=== PATIENT | male | born 1960 | race Caucasian/White ===

== ENCOUNTER 2021-07-18 05:46 | Day surgery (SDC) | payer BC ==
[2021-07-11 15:01] LABS: BASOPHILS # (AUTO) 0.1 X10'3 (0-0.2); BASOPHILS % (AUTO) 0.7 % (0-1); EOSINOPHILS # (AUTO) 0.5 X10'3 (0-0.9); EOSINOPHILS % (AUTO) 4.3 % (0-6); LYMPHOCYTES # (AUTO) 2.3 X10'3 (1.1-4.8); LYMPHOCYTES % (AUTO) 18.7 % (21-51); MEAN CORPUSCULAR HEMOGLOBIN 29.9 PG (27.0-31.0); MEAN CORPUSCULAR HGB CONC 32.8 g/dL (33.0-36.5); MEAN PLATELET VOLUME 7.9 FL (7.4-10.4); MONOCYTES # (AUTO) 1.1 X10'3 (0-0.9); NEUTROPHILS # (AUTO) 8.4 X10'3 (1.8-7.7); NEUTROPHILS % (AUTO) 67.3 % (42-75); PRE OP HEMATOCRIT 44.1 % (42.0-52.0); PRE OP HEMOGLOBIN 14.5 g/dL (14.0-17.9); PRE OP PLATELET COUNT 273 X10'3 (140-440); RED BLOOD COUNT 4.85 X10'6 (4.70-6.10); RED CELL DISTRIBUTION WIDTH 14.8 % (11.5-14.5)
[2021-07-11 15:10] LABS: PRE OP PROTIME 10.2 SECONDS (9.0-12.0)
[2021-07-11 15:14] LABS: ALBUMIN 3.8 G/DL (3.4-5.0); ALBUMIN/GLOBULIN RATIO 0.8 (1.1-1.5); ALKALINE PHOSPHATASE 87 IU/L (46-116); BLOOD UREA NITROGEN 33 MG/DL (7-18); BUN/CREATININE RATIO 22.1 (5.4-32.0); CALCIUM 10.6 MG/DL (8.5-10.1); CHLORIDE 105 MMOL/L (99-107); CREATININE 1.49 MG/DL (0.60-1.10); PRE OP ALT 26 U/L (30-65); PRE OP ANION GAP 6 (8-16); PRE OP AST 10 U/L (10-37); PRE OP BILIRUB, TOTAL 0.2 MG/DL (0.0-1.0); PRE OP GLUCOSE 129 MG/DL (70-104); PRE OP POTASSIUM 4.4 MMOL/L (3.4-5.1); PRE OP SODIUM 139 MMOL/L (135-145); TOTAL CARBON DIOXIDE 28.1 MMOL/L (24-32); TOTAL PROTEIN 8.7 G/DL (6.4-8.2); eGFR 48 ML/MIN
[2021-07-18] VITALS (17 sets, daily range): BP systolic 109–147; BP diastolic 58–98
[~2021-07-18] VITALS: Ht 177.8 cm; Wt 131.0 kg
[~2021-07-18 05:46] MED LIST: DICL75TA28 PO; GABA600T13 PO; LITH450T2 PO; METH-798 PO; acetaminophen 325mg tablet PO ONE; ceFAZolin 1GM/D5W- ADD-VANTAGE 50 ML IV ONE; cefazolin/dext.iso 2gm/50ml IV ONE; celeCOXIB 100mg capsule PO ONE; famotidine 20mg tablet PO ONE; gabapentin 300mg capsule PO ONE; metoclopramide 5 mg/ml inj IV ONE; oxyCODONE SR 10mg (sust. release) tab -2 tabs (20mg) PO ONE; ringers solution, lacted 1,000 ML IV SCH; vancomycin 1,500 MG in NS 300ml IV soln IV ONE
[2021-07-18] MEDS ORDERED: CLINDAMYCIN/D5W 900mg/50ml 50 ML IV ONE (06:10)
[2021-07-18] MEDS ORDERED: celeCOXIB 100mg capsule PO ONE (06:30)
[2021-07-18] MEDS ORDERED: ketorolac trometh. 30mg/ml inj. ONE (06:44)
[2021-07-18] MEDS ORDERED: ROPIVAcaine 0.5% (5mg/ml) 30ml vial ONE (06:44)
[2021-07-18] MEDS ORDERED: epiNEPHrine 1 mg/ml inj ONE (06:44)
[2021-07-18] MEDS ORDERED: cloNIDine hcl/PF 100mcg/ml inj ONE (06:44)
[2021-07-18] MEDS ORDERED: diphenhydrAMINE 25mg capsule PO PRN ×2 (06:45)
[2021-07-18] MEDS ORDERED: HYDROcodone/acetaminophen 10/325mg tab PO PRN (06:45)
[2021-07-18] MEDS ORDERED: magnesium hydroxide 30ml (MOM) UD suspension PO PRN (06:45)
[2021-07-18] MEDS ORDERED: HYDROmorphone inj. 0.5 MG/0.5 ML DISP.SYRIN IV PRN (06:45)
[2021-07-18] MEDS ORDERED: vancomycin 1,000mg inj ONE (06:45)
[2021-07-18] MEDS ORDERED: HYDROmorphone 1 mg/ml syringe IV PRN (06:45)
[2021-07-18] MEDS ORDERED: bisacodyl 10mg suppository rectal RC PRN (06:45)
[2021-07-18] MEDS ORDERED: ondansetron/PF 4mg/2ml inj IV PRN ×2 (06:45→10:40)
[2021-07-18] MEDS ORDERED: acetaminophen 325mg tablet PO PRN (06:45)
[2021-07-18] MEDS: multivitamins, therapeutics tablet PO SCH (08:00)
[2021-07-18] MEDS: lithium carbonate 450mg CR tablet PO SCH (08:00)
[2021-07-18] MEDS: ascorbic acid 500mg tablet PO SCH ×2 (08:00→20:07)
[2021-07-18] MEDS: gabapentin 300mg capsule PO SCH ×2 (08:00→20:07)
[2021-07-18] MEDS ORDERED: MIDAZolam 1 MG/ML 5ML VIAL ONE (08:21)
[2021-07-18] MEDS ORDERED: fentaNYL/PF 50MCG/1 ML 2ML syringe ONE (08:21)
[2021-07-18] MEDS: aspirin 325mg tablet PO SCH (08:30)
[2021-07-18] MEDS ORDERED: ePHEDrine 50MG/ML INJ. ONE (08:46)
[2021-07-18] MEDS ORDERED: propofol inj 20 ML IV ONE (10:03)
--- NOTE | 2021-07-18 10:05 | NUR ---
Received from OR via , accompanied by Anesthesiologist and report given by Anesthesiolgist. PATIENT a&ox4, denies PAIN, V/S WNL, SCD ON, 18g TO GERSON PERALTA drsg to left hip cdi w/ immobilizer brace on. SENSATIONS T10. taken to surgical with all belongings and hooked up to monitors in room and report given to rn who has taken over patient care.
[2021-07-18] MEDS ORDERED: ringers solution, lacted 1,000 ML IV SCH (10:40)
[2021-07-18] MEDS ORDERED: morphine 2 MG/ML inj. syringe IV PRN (10:40)
[2021-07-18] MEDS ORDERED: morphine 4 MG/ML inj SYRINge IV PRN (10:40)
[2021-07-18] MEDS ORDERED: proCHLORperazine 10 MG/2 ml inj IV PRN (10:40)
[2021-07-18] MEDS ORDERED: meperidine/PF 25mg/ml syringe IV PRN ×3 (10:40)
[2021-07-18] MEDS ORDERED: tranexamic acid inj. 1,000 MG in 0.7% saline 100 ML PMX IV ONE (11:00)
--- NOTE | 2021-07-18 11:05 | NUR ---
PATIENT VERY SLEEPY BUT EASILY AWAKENS AND ANSWERS QUESTIONS APPROPRIETLY,, denies PAIN, V/S WNL, SCD ON, 18g TO LUE, GERSON drsg to left hip cdi w/ immobilizer brace on. HE IS ABLE TO WIGGLE TOES NOW. FINGER TIPS HAVE POOR CIRCULATION PER DR TRIP SO EAR PROB PULSE OX BEING USED AT BEDSIDE AND IS 96% ON 4 LNC. taken to surgical with all belongings and hooked up to monitors in room and report given to rn who has taken over patient care.
[2021-07-18] MEDS ORDERED: cyclobenzaprine 10mg tablet PO PRN (13:00)
[2021-07-18] MEDS ORDERED: tranexamic acid 1gm/0.7% sal. 100 ML IV ONE (14:00)
[2021-07-18] MEDS: potassium cl 20mEq in 1/2 NS 1,000 ML IV SCH ×3 (15:06→22:45)
[2021-07-18] MEDS: CLINDAmcin 900mg/NS 50ml IVPB 50 ML IV SCH (15:15)
--- NOTE | 2021-07-18 17:19 | NUR ---
1100 pt recieved from PACU. no acute changes from previous assessment per rn report
--- NOTE | 2021-07-18 19:49 | NUR ---
LEFT FOOT IS BLUISH RED WITH POSITIVE DORSALIS PEDAL PULSES ALTHOUGH HIS FEET ARE COOL.
[2021-07-18] MEDS ORDERED: vancomycin/NS 1 GM ADD-VANTAGE 250 ML IV ONE (20:00)
[2021-07-18] MEDS ORDERED: sennosides 8.6mg tablet PO SCH (21:00)
[2021-07-18] MEDS ORDERED: lithium carbonate 450mg CR tablet PO SCH (21:00)
[2021-07-18] MEDS ORDERED: vancomycin inj. 750 MG in normal saline 250ml IV soln 250 ML IV ONE (21:30)
[2021-07-18] MEDS ORDERED: LORazepam 1 MG tablet PO PRN (23:25)
[2021-07-19] VITALS: BP 153/90
[2021-07-19] MEDS: HYDROcodone/acetaminophen 10/325mg tab PO PRN ×2 (00:01→05:12)
[2021-07-19] MEDS: potassium cl 20mEq in 1/2 NS 1,000 ML IV SCH (03:00)
[2021-07-19 04:00] VITALS: BP 143/80
--- NOTE | 2021-07-19 06:12 | NUR ---
Problems reprioritized. Patient report given, questions answered & plan of care reviewed with JAZ. Addendum: 07/19/21 at 0613 by Jude Mccarty RN Amended: Links added.
[2021-07-19 06:31] LABS: BASOPHILS % (AUTO) 0.4 % (0-1); EOSINOPHILS # (AUTO) 0.3 X10'3 (0-0.9); EOSINOPHILS % (AUTO) 2.2 % (0-6); HEMOGLOBIN 12.3 g/dl (14.0-17.9); LYMPHOCYTES # (AUTO) 0.9 X10'3 (1.1-4.8); LYMPHOCYTES % (AUTO) 7.1 % (21-51); MEAN CORPUSCULAR HEMOGLOBIN 30.2 PG (27.0-31.0); MEAN CORPUSCULAR HGB CONC 32.3 g/dL (33.0-36.5); MEAN CORPUSCULAR VOLUME 93.6 FL (78-98); MEAN PLATELET VOLUME 8.1 FL (7.4-10.4); MONOCYTES # (AUTO) 1.4 X10'3 (0-0.9); MONOCYTES % (AUTO) 11.1 % (2-12); NEUTROPHILS # (AUTO) 9.9 X10'3 (1.8-7.7); NEUTROPHILS % (AUTO) 79.2 % (42-75); PLATELET COUNT 190 X10'3 (140-440); RED BLOOD COUNT 4.06 X10'6 (4.70-6.10); RED CELL DISTRIBUTION WIDTH 15.4 % (11.5-14.5); WHITE BLOOD COUNT 12.4 X10'3 (4.5-11.0)
[2021-07-19 06:53] LABS: ANION GAP 7 (8-16); CHLORIDE 107 MMOL/L (99-107); POTASSIUM 5.2 MMOL/L (3.5-5.1); SODIUM 141 MMOL/L (135-145); TOTAL CARBON DIOXIDE 27.1 MMOL/L (24-32)
[2021-07-19] MEDS: CLINDAmcin 900mg/NS 50ml IVPB 50 ML IV SCH ×2 (07:36)
[2021-07-19] MEDS: multivitamins, therapeutics tablet PO SCH (07:36)
[2021-07-19] MEDS: ascorbic acid 500mg tablet PO SCH (07:37)
[2021-07-19] MEDS: gabapentin 300mg capsule PO SCH (07:42)
[2021-07-19] MEDS: lithium carbonate 450mg CR tablet PO SCH (07:42)
[2021-07-19] MEDS: aspirin 325mg tablet PO SCH (07:42)
[2021-07-19 08:00] VITALS: BP 132/70
[2021-07-19 12:00] VITALS: BP 147/94
--- NOTE | 2021-07-19 13:12 | NUR ---
PT paged to review limitations with pts son Chance
[2021-07-19] MEDS ORDERED: celeCOXIB 100mg capsule PO SCH (20:00)
== END 2021-07-19 15:12 | disposition home or self-care (01) ==
LOC: PAS 05:46 → SUR 3N 06:45 → PAS 07-19 15:12
PROVIDERS: ATTEND Orthopaedic Surgery
DX: M16.12 Unilateral primary osteoarthritis, left hip (principal); F31.9 Bipolar disorder, unspecified; E66.01 Morbid (severe) obesity due to excess calories; Z68.39 Body mass index [BMI] 39.0-39.9, adult; Z20.822 Contact with and (suspected) exposure to COVID-19; Z79.899 Other long term (current) drug therapy; Z88.0 Allergy status to penicillin; Z98.890 Other specified postprocedural states; Z86.14 Personal history of Methicillin resistant Staphylococcus aureus infection; Z79.01 Long term (current) use of anticoagulants
CPT/HCPCS: 27130; 36415; 72170; 80051; 80053; 82948; 85025; 85610; 85730; 86885; 86900; 86901; 87081; 97110; 97116; 97161; 97530; 97535; C1776; J0171; J0735; J1170; J1885; J2250; J2704; J2765; J2795; J3010; J3370; J3480; J3490; J7030; J7040; J7050; J7120; U0003; U0005; Z7506; Z7508; Z7512; A7000; G0378